=== PATIENT | female | born 1990 | race Hispanic/Latino ===

== ENCOUNTER 2022-01-25 16:04 | Inpatient (IN) | payer MEDICAID, OTHER ==
[~2022-01-25] VITALS: Ht 157.5 cm; Wt 66.2 kg
[2022-01-25 16:56] LABS: APPEARANCE,URINE CLEAR (CLEAR); BILIRUBIN,URINE NEGATIVE (NEGATIVE); COLOR,URINE COLORLESS (YELLOW); GLUCOSE, URINE (UA) NEGATIVE (NEGATIVE); KETONES,URINE NEGATIVE (NEGATIVE); LEUKOCYTE ESTERASE ,URINE NEGATIVE Leu/uL (NEGATIVE); NITRATE,URINE NEGATIVE (NEGATIVE); OCCULT BLOOD,URINE NEGATIVE (NEGATIVE); PROTEIN,URINE NEGATIVE (NEGATIVE); UROBILINOGEN,URINE 0.2 mg/dL (0.2-1.0)
[2022-01-25 16:59] LABS: AMPHET/METH SCREEN,URINE NEGATIVE (NEGATIVE); BARBITURATE SCREEN, URINE NEGATIVE (NEGATIVE); BENZODIAZEPINES SCREEN,URINE NEGATIVE (NEGATIVE); CANNABINOID SCREEN,URINE NEGATIVE (NEGATIVE); COCAINE SCREEN,URINE NEGATIVE (NEGATIVE); PHENCYCLIDINE SCREEN,URINE NEGATIVE (NEGATIVE)
[2022-01-25] MEDS ORDERED: OXYTOCIN-LR 20 UNITS/1000 ML 1,000 ML IV SCH (17:00)
[2022-01-25] MEDS ORDERED: NALOXONE HCL 0.4 MG/1 ML ML IV PRN (17:00)
[2022-01-25] MEDS ORDERED: ROPIVACAINE 0.2% 100ML VIAL 100 ML EP SCH (17:00)
[2022-01-25] MEDS ORDERED: LACTATED RINGERS 1000ML 1,000 ML IV PRN (17:00)
[2022-01-25] MEDS ORDERED: EPHEDRINE SULFATE 50 MG/ML AMPULE IVP PRN (17:00)
[2022-01-25] MEDS ORDERED: AMPICILLIN 2GM+NS 100ML 100 ML IV SCH (17:00)
[2022-01-25] MEDS ORDERED: MEPERIDINE-PF 50 MG/ML SYG IVP PRN (17:00)
[2022-01-25] MEDS ORDERED: LACTATED RINGERS 500 ML 500 ML IV PRN (17:00)
[2022-01-25] MEDS ORDERED: PROMETHAZINE HCL 25 MG/ML 1ML AMPULE IM PRN (17:00)
[2022-01-25 17:05] LABS: HEMATOCRIT 32.4 % (36-48); MEAN CORPUSCULAR HEMOGLOBIN 29.7 pg (27.0-33.0); MEAN CORPUSCULAR HGB CONC 33.6 g/dL (32.0-36.0); MEAN CORPUSCULAR VOLUME 88.3 fL (79-99); RED BLOOD CELL COUNT(AUTO) 3.67 MIL/uL (4.00-5.50); RED CELL DISTRIBUTION WIDTH 15.1 % (11.0-15.5); WHITE BLOOD COUNT (AUTO) 9.7 K/uL (4.8-10.8)
[2022-01-25] MEDS ORDERED: LIDOCAINE HCL 1% 20 ML VIAL INJ SCH (21:00)
[2022-01-25] MEDS ORDERED: AMPICILLIN 1GM+NS 50ML 50 ML IV SCH (21:00)
[2022-01-25] MEDS ORDERED: LIDOCAINE HCL MPF 1% 5ML VIAL IV SCH (22:00)
[2022-01-25] MEDS ORDERED: LIDOCAINE HCL MPF 1% 5ML VIAL ONE (22:02)
[2022-01-25] MEDS ORDERED: LIDOCAINE HCL 1% 10 ML VIAL ONE (22:29)
[2022-01-25] MEDS ORDERED: PHARMACY COMMUNICATION MISC SCH (22:30)
[2022-01-26] VITALS (7 sets, daily range): BP systolic 95–117; BP diastolic 57–70
[2022-01-26] MEDS ORDERED: OXYTOCIN-LR 20 UNITS/1000 ML 1,000 ML IV SCH (00:30)
[2022-01-26] MEDS ORDERED: MEASLES/MUMPS/RUBELLA VACCINE, LIVE 0.5 ML/VIAL SQ PRN (01:30)
[2022-01-26] MEDS ORDERED: ACETAMINOPHEN WITH CODEINE 1 TAB TAB PO PRN (01:30)
[2022-01-26] MEDS ORDERED: BENZOCAINE/LANOLIN/ALOE VERA 60 ML AEROSOL TP PRN (01:30)
[2022-01-26] MEDS ORDERED: WITCH HAZEL 1 PAD TP PRN (01:30)
[2022-01-26] MEDS ORDERED: ACETAMINOPHEN 325 MG TAB PO PRN (01:30)
[2022-01-26] MEDS ORDERED: DIPH,PERTUSS(ACELL),TET VAC/PF 0.5 ML VIAL IM PRN (01:30)
[2022-01-26] MEDS ORDERED: LANOLIN 30GM OINTMENT TP PRN (01:30)
[2022-01-26] MEDS ORDERED: IBUPROFEN 600 MG TABLET ONE (01:46)
[2022-01-26 06:48] LABS: HEMATOCRIT 32.5 % (36-48); MEAN CORPUSCULAR HEMOGLOBIN 29.8 pg (27.0-33.0); MEAN CORPUSCULAR HGB CONC 33.8 g/dL (32.0-36.0); MEAN CORPUSCULAR VOLUME 88.1 fL (79-99); RED BLOOD CELL COUNT(AUTO) 3.69 MIL/uL (4.00-5.50); RED CELL DISTRIBUTION WIDTH 14.7 % (11.0-15.5); WHITE BLOOD COUNT (AUTO) 17.8 K/uL (4.8-10.8)
[2022-01-26] MEDS: IBUPROFEN 600 MG TABLET PO PRN ×2 (10:30→23:17)
[2022-01-26] MEDS: DOCUSATE SODIUM 100 MG CAP PO SCH ×2 (10:30→20:55)
[2022-01-26 14:08] LABS: RAPID PLASMA REAGIN NONREACTIVE (NONREACTIVE)
[2022-01-27 03:54] VITALS: BP 98/66
[2022-01-27 07:29] VITALS: BP 107/58
[2022-01-27] MEDS: IBUPROFEN 600 MG TABLET PO PRN (08:34)
[2022-01-27] MEDS: DOCUSATE SODIUM 100 MG CAP PO SCH (08:34)
[2022-01-27 11:30] VITALS: BP 100/54
[2022-01-28 07:15] LABS: RUBELLA IGM ANTIBODY <20.0 AU/mL (0.0-19.9)
== END 2022-01-27 13:15 | disposition home or self-care (01) | DRG 861 ==
LOC: EDH 16:04 → OBSVTOIN 16:05 → LDH 16:05 → WSH 01-26 01:50
PROVIDERS: ADMIT Obstetrics & Gynecology; ATTEND Obstetrics & Gynecology
DX: Z34.90 Encounter for supervision of normal pregnancy, unspecified, unspecified trimester (principal); Z3A.38 38 weeks gestation of pregnancy
CPT/HCPCS: 36415; 76805; 80305; 81003; 85027; 86592; 86701; 86762; 86850; 86900; 86901; 87340; 87390; 90715; G0378; J0290; J2175; J2550; J2590; J3490